=== PATIENT | male | born 1995 | race Caucasian/White ===

== ENCOUNTER 2024-07-10 10:32 | Emergency (ER) | payer SELFPAY ==
[2024-07-10 10:44] VITALS: BP 144/87; PULSE 72; RESP 20; TEMP 36.8; O2SAT 100
--- NOTE | 2024-07-10 10:57 | ED.NAVMDI ---
HPI - Nausea/Vomiting/Diarrhea General Chief complaint: Nausea/Vomiting/Diarrhea Stated complaint: Nausea/Diarrhea/Vomiting Time Seen by Provider: 07/10/24 10:57 Source: patient and RN notes reviewed Mode of arrival: ambulatory Limitations: no limitations History of Present Illness HPI Narrative: 28 old male presented for complaint nausea vomiting, diarrhea. Onset yesterday. Last emesis was this morning at 8:00 a.m.. Stopped eating today and reports feeling better but still has abdominal cramping. He denies associated abdominal pain, hematochezia, melena, or fever. Unsure of sick contacts. Related Data Home Medications ?Medication ?Instructions ?Recorded ?Confirmed ?Last Taken ?Type No Home Medications 07/10/24 07/10/24 Unknown History Allergies Allergy/AdvReac Type Severity Reaction Status Date / Time No Known Allergies Allergy Verified 07/10/24 10:47 Review of Systems Review of Systems: CONSTITUTIONAL: Denies body aches, fever, chills ENT: Denies rhinorrhea, congestion CARDIOVASCULAR: Denies chest pain, palpitations, or edema. RESPIRATORY: Denies cough or dyspnea. GASTROINTESTINAL: Endorses nausea, vomiting, diarrhea. Denies abdominal pain, hematochezia, melena, hematemesis GENITOURINARY: Denies dysuria, hematuria, or CVA tenderness. SKIN: Denies rash NEUROLOGIC: Denies headache All systems reviewed & are unremarkable except as noted in HPI and below PMFSH Comments At time of signature, I have reviewed and agree with nursing past medical, surgical, social and family history unless otherwise noted. Please see nursing chart for further information. There is no relevant family history pertinent to the presenting complaint Exam Narrative: GENERAL: Well-appearing, and in no acute distress. ENT: Mucous membranes pink and moist. CHEST: No respiratory distress. Clear to auscultation. HEART: Regular rate and rhythm. No murmur appreciated. Normal peripheral pulses. ABDOMEN: abd soft, nondistended, normal active bowel sounds. Nontender abdomen; No guarding, rebound tenderness, asymmetry SKIN: Warm, dry, no rash. Capillary refill normal. Normal skin turgor. NEURO: No focal deficits. Alert and oriented x3. PSYCH: Normal affect. Course Course Emergency Course: Patient is aware of diagnosis, understands and agrees to treatment plan. Anticipatory guidance given. Patient agrees to follow-up as directed and is aware of reasons to seek care at the emergency department. Portions of this record may have been created with voice recognition software Level of Care: Express Care Visit Vital Signs Vital signs: Vital Signs Temperature 98.3 F 07/10/24 10:44 Pulse Rate 72 07/10/24 10:44 Respiratory Rate 20 07/10/24 10:44 Blood Pressure 144/87 H 07/10/24 10:44 Pulse Oximetry 100 07/10/24 10:44 Oxygen Delivery Room Air 07/10/24 10:44 Temperature 98.3 F 07/10/24 10:44 Pulse Rate 72 07/10/24 10:44 Respiratory Rate 20 07/10/24 10:44 Blood Pressure 144/87 H 07/10/24 10:44 Pulse Oximetry 100 07/10/24 10:44 Oxygen Delivery Room Air 07/10/24 10:44 MDM - Nausea/Vomiting/Diarrhea MDM Narrative Medical decision making narrative: Discussed physical exam findings. Advised supportive measures and signs/symptoms to go to the ER. Pt is appropriate for outpt treatment and f/u. Differential Diagnosis Differential diagnosis: Likely traveler's diarrhea, food poisoning, gastroenteritis and dehydration Discharge Plan Discharge Clinical Impression: Nausea vomiting and diarrhea Patient Disposition: Home, Self-Care Condition: Stable Instructions: Antibiotic Form, Gastroenteritis (ED) Additional Instructions: Stay hydrated. Take small sips of fluid containing electrolytes frequently. slowly advanced to Clear liquids (broth, jello, tea, sprite, pedialyte) then slowly advance to [place] foods (bananas, rice, applesauce, toast, crackers) Avoid fatty, greasy, fried or spicy foods. Limit dairy until symptoms are improved. [id number] Imodium according to package directions for severe diarrhea Recommend probiotic such as align or lactobacillus to help with symptoms. You should go to the hospital if you experience persistent nausea and vomiting that does not resolve and does not allow you to tolerate any food or fluids, fevers, increasing abdominal pain, persistent diarrhea, or for any other concerns. Follow up with primary care provider in 3 days. Patient Language: Japanese Prescriptions: No Action No Home Medications Follow-up/Referrals: PHYSICIAN NOT ON STAFF,NONSTAFF [Primary Care Provider] - Stand Alone Forms: Work/School Release IP Time of Disposition: 11:02
--- OUTSIDE RECORDS SUMMARY | 2024-07-18 00:17 | XMS_ITS | Encounter Summary ---
Author Organization [facility] Healthcare Address [address] [place] [address] Care Team Providers Care Gas Flow Regulator Name Role Phone Rosina Lucero MD Primary Care Provider [phone] Encounter Details Date Type Department Care Team (Late st Contact Info) Description 04/13/2013 5:41 PM CDT - 04/13/2013 11:59 PM CDT Hospital Encounter [facility] Rosina Lucero MD [address] [place] [id number] Pain in joint, lower leg Social History Tobacco Use Types Packs/Day Years Used Date Smoking Tobacco: Never Assessed Sex and Gender Information Value Date Recorded Sex Assigned at Not on file 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 RESULT: Four views of the right knee demonstrate no evidence of fracture or dislocation. ??The joint spaces are normally aligned. The soft tissues are normal. IMPRESSION: NORMAL RIGHT KNEE. Interpreting Physician: ??DR ALICE MAZA M.D. ??Read on: ??Apr 13 2013 6:12P Transcribed by: ??mb ?? On: Apr 13 2013 ??7:36P Approved Electronically by: ??LINK Palm, DR JENKINS ??on: ??Apr 14 2013 5:46A Ordering DR: DR ROSINA LUCERO Attending DR: DR ROSINA LUCERO Procedure Note Provider, Pallavi, - 11/17/2016 XR Knee Min 4 Views [id number] Acc#: [id number] DATE OF EXAM: Apr 13 2013 CLINICAL HISTORY: Right knee pain, status post fall. RESULT: Four views of the right knee demonstrate no evidence of fracture ordislocation. The joint spaces are normally aligned. The soft tissues arenormal. IMPRESSION: NORMAL RIGHT KNEE. Interpreting Physician: DR ALICE MAZA M.D. Read on: Apr 13 20136:12P Transcribed by: musa On: Apr 13 2013 7:36P Approved Electronically by: LINK Palm, DR JENKINS on: Apr 14 20135:46A Ordering DR: DR ROSINA LUCERO Attending DR: DR ROSINA LUCERO us Historical Provider IMDeborah XR PROCEDURES Final R esult documented in this encounter Visit Diagnoses Diagnosis Pain in joint, lower leg documented in this encounter Care Teams Gas Flow Regulator Relationship Specialty Start Date End Date Rosina Lucero MD PCP - General 04/01/11 07/07/23 documented as of this encounter
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
--- OUTSIDE RECORDS SUMMARY | 2024-07-18 00:17 | XMS_ITS | Encounter Summary ---
Author Organization [facility] Healthcare Address [address] [place] [address] Care Team Providers Care Farm Machinery Assembler Name Role Phone Rosina Esteban MD Primary Care Provider [phone] Encounter Details Date Type Department Care Team (Late st Contact Info) Description 02/13/2017 12:37 PM CDT - 02/13/2017 3:36 PM CDT Emergency 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 Gender Identity Not on file Sexual Orientation Not on file documented as of this encounter Discharge Disposition Disposition Code Departure Means Destination Discharge to home or self care documented in this encounter Plan of Treatment Not on file documented as of this encounter Procedures Procedure Name Priority Date/Time Associated Diagnosis Comments CREATINE KINASE (CK), TOTAL STAT 02/13/2017 2:24 PM CDT URINALYSIS AND REFLEX TO MICROSCOPIC AND CULTURE STAT 02/13/2017 2:00 PM CDT EGFR STAT 02/13/2017 1:15 PM CDT DIFFERENTIAL AUTO STAT 02/13/2017 1:1 5 PM CDT CBC WITH AUTO DIFFERENTIAL STAT 02/13 1:15 PM CDT LIPASE STAT 02/13/2017 1:15 PM CDT AMYLASE STAT 02/13/2017 1:15 PM CDT COMPREHENSIVE METABOLIC PANEL STAT 02/13/2017 1:15 PM CDT ELECTROCARDIOGRAPHY (ECG) 02/13/2017 DISCHARGE LABORATORY CUMULATIVE REPORT 02/13/2017 12:00 AM CDT documented in this encounter Results * Creatine kinase (CK), total (02/13/2017 2:24 PM CDT) CK 80 30 - 200 Units/L [facility]) Blood specimen (specimen) 02/13/2017 2:24 PM CDT 02/13/2017 2:30 PM CDT us Amy Parra HOST/HOSTESS HEAD LAB BLOOD ORDERABLES Final Re sult [facility] ([place]) 1 [facility] Department [place] [address] * Urinalysis reflex to microscopic and culture (02/13/2017 2:00 PM CDT) Color, ur Yellow Yellow [facility] ([place]) Clarity, ur Clear Clear [facility] ([place]) Specific gravity, ur 1.019 1.003 - 1.030 [facility] ([place]) Comment:Normal Ranges: 1.003 -1.030 pH, ur 7.5 4.5 - 8.0 [facility] ([place]) Comment:Normal ranges: 4.5-8 .0 Protein, ur ql Negative Negative mg/dL [facility] ([place]) Glucose, ur ql Negative Negative mg/dL [facility] ([place]) Ketones, ur Negative Negative [facility] ([place]) Bilirubin, ur Negative Negative [facility]) Blood, ur Negative Negative [facility]) Urobilinogen, ur 0.2 0.2 - 1.0 EhrUnit/dL [facility] ([place]) Comment:Normal Ranges: 0.2-1 .0 EU/dL Nitrites, ur Negative Negative [facility] ([place]) Leukocyte esterase, ur Negative Negative [facility] ([place]) Urine 02/13/2017 2:00 PM CDT 02/13/2017 2:04 PM CDT us Amy Parra NP LAB MICROBIOLOGY - GENERAL OR DERABLES Final Result [facility] ([place]) 1 [facility] Department [place] [address] * eGFR (02/13/2017 1:15 PM CDT) eGFR >60 mL/min/1.7 3 m2 [facility] ([place]) Comment: Interpretive Data Reference Interval Normal ?>/= 90 mL/min/1.73m2 Mildly decreased* ? 60 - 89 mL/min/1.73m2 Mildly to moderately decreased ?45 - 59 mL/min/1.73m2 Moderately to severely decreased ??30 - 44 mL/min/1.73m2 Severely decreased ?15 - 29 mL/min/1.73m2 Kidney Failure ?< 15 ??mL/min/1.73m2 *Relative to young adult level If -[place] multiply value by 1.16. Estimated glomerular filtration rate is determined by the CKD-EPI equation recommended by the National Kidney Foundation (KDIGO 2012 Clinical Practice Guideline for the Evaluation and Management of Chronic Kidney Disease. Kidney Intnl Suppl Jul 2012;3:1). The CKD-EPI equation should not be used for patients with unstable renal function and has not been validated in children and those over 70. Current interpretive data was last reviewed 2016. Blood specimen (specimen) 02/13/2017 1:15 PM CDT 02/13/2017 1:17 PM CDT us Amy Parra HOST/HOSTESS HEAD LAB BLOOD ORDERABLES Final Re sult [facility] ([place]) 1 [facility] Department [place] [address] * Comprehensive metabolic panel (02/13/2017 1:15 PM CDT) Sodium 140 135 - 145 mmol/L [facility] ([place]) Potassium 4.0 3.5 - 5.1 mmol/L [facility]) Chloride 102 97 - 110 mmol/L [facility]) CO2 26 22 - 32 mmol/L [facility] ([place]) Anion gap 12 8 - 16 mmol/L [facility] ([place]) Glucose 99 70 - 199 mg/dL [facility] ([place]) Comment: Interpretive Data Note:The glucose is assumed non fasting Fastin-99 mg/dL Random: ??70-199 mg/dL Either a fasting glucose > 126 mg/dL or a random glucose > 200 mg/dL plus symptoms is diagnostic of diabetes when confirmed on another day. Fasting values > 100 mg/dL but < 125 mg/dL are diagnostic of impaired fasting glucose. Current interpretive data was last revised on 2014. BUN 11.6 8.0 - 25.0 mg/dL [facility]) Creatinine 0.75 0.70 - 1.30 mg/dL [facility] ([place]) BUN/creat ratio 15 10 - 20 [facility] ([place]) Calcium 9.3 8.6 - 10.2 mg/dL [facility] ([place]) Protein, sr 7.4 6.0 - 8.4 g/dL [facility] ([place]) Albumin 4.5 3.6 - 5.0 g/dL [facility] ([place]) Alk phos 96 40 - 130 Units/L [facility] ([place]) ALT 45 5 - 50 Units/L [facility]) AST 27 10 - 45 Units/L [facility] ([place]) Bilirubin, total 0.9 <=1.2 mg/dL [facility] ([place]) Blood specimen (specimen) 02/13/2017 1:15 PM CDT 02/13/2017 1:17 PM CDT us Amy Parra HOST/HOSTESS HEAD LAB BLOOD ORDERABLES Final Re sult Performing Organization Address City/[facility]/ZIP Co de Phone Number [facility] ([place]) 1 [facility] [place] [address] * Lipase (02/13/2017 1:15 PM CDT) Lipase 19 10 - 70 Units/L [facility] ([place]) Blood specimen (specimen) 02/13/2017 1:15 PM CDT 02/13/2017 1:17 PM CDT us Amy Parra HOST/HOSTESS HEAD LAB BLOOD ORDERABLES Final Re sult Performing Organization Address [facility]/ZIP Co de Phone Number [facility] ([place]) 1 [facility] [place] [employer] [address] * Amylase (02/13/2017 1:15 PM CDT) Amylase 46 30 - 100 Units/L [facility] ([place]) Blood specimen (specimen) 02/13/2017 1:15 PM CDT 02/13/2017 1:17 PM CDT us Amy Parra HOST/HOSTESS HEAD LAB BLOOD ORDERABLES Final Re sult Performing Organization Address City/[facility]/ZIP Co de Phone Number [facility] ([place]) 1 [facility] [place] [address] * CBC with auto differential (02/13/2017 1:15 PM CDT) WBC 7.31 3.80 - 9.80 K/cumm [facility] ([place]) RBC 4.69 4.50 - 5.70 M/cumm [facility] ([place]) Hgb 15.2 13.8 - 17.2 g/dL [facility] ([place]) Hct 42.7 40.7 - 50.3 % [facility]) MCV 91.0 80.0 - 100.0 fL [facility] ([place]) MCH 32.4 26.7 - 33.7 pg [facility] ([place]) MCHC 35.6 32.7 - 36.0 g/dL [facility] ([place]) RDW CV 11.9 11.5 - 14.6 % [facility] ([place]) Plt 242 140 - 440 K/cumm [facility] ([place]) MPV 11.6 8.0 - 12.0 fL [facility]) NRBC 0.0 0.0 - 0.0 % [facility] ([place]) NRBC abs 0.00 0.00 - 0.00 K/cumm [facility] ([place]) Blood specimen (specimen) 02/13/2017 1:15 PM CDT 02/13/2017 1:17 PM CDT us Amy Parra HOST/HOSTESS HEAD LAB BLOOD ORDERABLES [facility] 1 [facility] Department of Laboratories [place], [place] [id number] * Differential, auto (02/13/2017 1:15 PM CDT) Neutrophil pct 64.0 44.0 - 80.0 % [facility] ([place]) Imm gran pct 0.3 0.0 - 1.0 % [facility] ([place]) Lymphocyte pct 27.5 13.0 - 44.0 % [facility]) Monocyte pct 7.1 2.0 - 11.0 % [facility]) Eosinophil pct 0.7 0.0 - 6.0 % [facility]) Basophil pct 0.4 0.0 - 3.0 % [facility]) Neutrophil abs 4.68 1.60 - 7.00 K/cumm [facility] ([place]) Imm gran abs 0.02 0.00 - 0.20 K/cumm [facility] ([place]) Lymphocyte abs 2.01 0.50 - 4.30 K/cumm [facility] ([place]) Monocyte abs 0.52 0.10 - 1.00 K/cumm [facility] ([place]) Eosinophil abs 0.05 0.00 - 0.60 K/cumm [facility] ([place]) Basophil abs 0.03 0.00 - 0.30 K/cumm [facility] ([place]) Blood specimen (specimen) 02/13/2017 1:15 PM CDT 02/13/2017 1:17 PM CDT us Amy Parra HOST/HOSTESS HEAD LAB BLOOD ORDERABLES Final Re sult [facility] ([place]) 1 [facility] Department [place] [address] * DISCHARGE LABORATORY CUMULATIVE REPORT (02/13/2017 12:00 AM CDT) Narrative 02/13/2017 12:00 AM CDT Ordered by an unspecified provider. Historical Provider LAB BLOOD ORDERABLES Alice l Result * ELECTROCARDIOGRAPHY (ECG) (02/13/2017) Provider Scanning ECG ORDERABLES Final Result documented in this encounter Visit Diagnoses Not on filedocumented in this encounter Care Teams Farm Machinery Assembler Relationship Specialty Start Date End Date Rosina Esteban MD PCP - General 04/01/11 07/07/23 documented as of this encounter
--- OUTSIDE RECORDS SUMMARY | 2024-07-18 00:17 | XMS_ITS | Referral Summary ---
Author Organization [facility] Address [address] [place] [address] Care Team Providers Care Top Lift And Automatic Window Repairer Name Role Phone Tamar Macias NP Primary Care Provider [phone] Allergies No known active allergies Medications naproxen (NAPROSYN) 500 mg tablet Take 1 tablet (500 mg total) by mouth 2 (two) times a day as needed for pain (pain) 60 tablet 07/09/2023 Active Active Problems Problem Noted Date Diagnosed Date Inguinal pain of both sides 07/09/2023 Assessment & Plan (07/09/2023 2:31 PM ROUGH PATCHER): Persistent Inguinal strain, initial encounter 07/09/2023 Assessment & Plan (07/09/2023 2:30 PM ROUGH PATCHER): Pain started after doing a lot of straining with heavy lifting, pushing and pulling at work on 07/05/23 Reported it the same day Was sent to [facility] for evaluation on 06/1323, dx with epididymitis and released to return to work light duty (see copy in chart) Inguinal hernia of right jamal e without obstruction or gangrene 07/09/2023 Assessment & Plan (07/09/2023 2:32 PM ROUGH PATCHER): Palpable R inguinal hernia that is reducible with moderate amount of pain reported Immunizations Name Administration Dates Next Due DTP / HiB 03/08/1997,01/08/1997,1996 Hep B, Adolescent or Pediatric 06/08/1997,1996,1996 Influenza, Split 05/05/2010 Influenza, Unspecified 07/09/2023(Deferr ed: Patient Refused),07/06/2022(Deferred: Patient Refused) OPV 01/08/1997,1996 Social History Tobacco Use Types Packs/Day Years Used Date Smoking Tobacco: Never Smokeless Tobacco: Never Comments:Vapes AUDIT-C Answer Date Recorded Q1: How often do you have a drink containing alcohol? Never 07/09/2023 Q2: How many drinks containi ng alcohol do you have on a typical day when you are drinking? Patient does not drink Q3: How often do you have si x or more drinks on one occasion? Never 07/09/2023 PHQ-2 Answer Date Recorded PHQ-2 Total Score (If total score is 3 or more points, staff should administer the PHQ-9) 0 07/09/2023 Personal Safety Answer Date Recorded Getting School Help Needed Not on file 07/07 Sex and Gender Information Value Date Recorded Sex Assigned at Not on file Legal Sex Male 9:13 AM ROUGH PATCHER Gender Identity Not on file Sexual Orientation Not on file Last Filed Vital Signs Vital Sign Reading Time Taken Comments Blood Pressure 118/80 07/09/2023 10:15 AM ROUGH PATCHER Pulse 79 07/09/2023 10:15 AM ROUGH PATCHER Temperature 36.4 ??C (97.6 ??F) 07/09/2023 10:[address] Respiratory Rate 18 06/19/2019 10:53 PM ROUGH PATCHER Oxygen Saturation 99% 07/09/2023 10:15 AM ROUGH PATCHER Inhaled Oxygen Concentration - - Weight 97 kg (213 lb 14.4 oz) 07/09/2023 10:15 A M ROUGH PATCHER Height 172.7 cm (5' 8 ) 07/09/2023 10:15 AM ROUGH PATCHER Body Mass Index 32.52 07/09/2023 10:15 AM ROUGH PATCHER Plan of Treatment Not on file Care Teams Top Lift And Automatic Window Repairer Relationship Specialty Start Date End Date Tamar Macias NP PCP - General Tour Counselor 07/08/23
--- OUTSIDE RECORDS SUMMARY | 2024-07-18 00:17 | XMS_ITS | Encounter Summary ---
Author Organization [facility] Healthcare Address [address] [place] [address] Care Team Providers Care Business Architect Name Role Phone Tamar Macias NP Primary Care Provider Reason for Visit * Reason Onset Date Comments Medical Records Request 08/09/2023 Encounter Details Date Type Department Care Team ([facility] Contact Info) Description 08/09/2023 Telephone [facility] Medical [facility] Primary Care at [address] [place] [address] Tamar Macias NP [address] [place] [address] Medical Records Request Social History Tobacco Use Types Packs/Day Years [...] on file 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 Understood. Does message need to be routed? No ON FEEDER * Telephone Encounter - Renae Campo MA - 08/09/2023 11:58 AM COTTON FEEDER Left envolope at front desk auxiliary for the patient, with requested documents ON FEEDER * Telephone Encounter - Tania Bauer - 08/09/2023 11:32 AM CST Medical Records Request Request Type: Records Request Practice Will Complete What records are being requested:Office visit notes from 07/09/23 Who will the records be sent to (if being sent to another doctor, list the doctor's name and specialty)? Patient picking up Date Needed: JOEL Delivery Method: upholstery parts sorter at practice Additional Comments: patient needs this JOEL as work dr did not find hernia and they are making himwork. ESTELA Macias did find something the patient states. Does message need to be routed? Yes-Action Needed ON FEEDER documented in this encounter Plan of Treatment Not on file documented as of this encounter Visit Diagnoses Not on filedocumented in this encounter Care Teams Business Architect Relationship Specialty Start Date End Date Tamar Macias NP PCP - General Shirt Creaser 07/08/23 documented as of this encounter
--- OUTSIDE RECORDS SUMMARY | 2024-07-18 00:17 | XMS_ITS | Encounter Summary ---
Author Organization [facility] Healthcare Address [address] [place] [address] Care Team Providers Care Stockfeed Miller Name Role Phone Tamar Macias NP Primary Care Provider [phone] Reason for Visit * Reason Onset Date Comments Recommendation Request 08/24/2023 Encounter Details Date Type Department Care Team ([facility] Contact Info) Description 08/24/2023 Telephone [facility] Medical Group Primary Care at [address] [place] [phone] Tamar Macias NP [address] [place] [address] [address] [place] [address] Recommendation Request Social History Tobacco Use Types Packs/Day [...] on file 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 S AND MARKETING MANAGER * Telephone Encounter - Tania Bauer - 08/24/2023 12:05 PM CST Recommendation Request Note: This request is for a specialty recommendation, not an insurance referral. Specialty: Urology and surgeon Why does the patient want to go to this specialist? He has a hernia and he is scheduled for surgeryon 08/30/23. Marking hp. He said that the the hernia is over a blood vessel that could be damaged andtake away a testicle. Additional Comments/Concerns: work comp is mixed up in this, but he is concerned he is not being treated correctly. He is willing to pay out of pocket to be treated right. He has a lot of questions as well. Does message need to be routed? Yes-Action Needed S AND MARKETING MANAGER documented in this encounter Plan of Treatment Not on file documented as of this encounter Visit Diagnoses Not on filedocumented in this encounter Care Teams Stockfeed Miller Relationship Specialty Start Date End Date Tamar Macias NP PCP - General Nut Sheller 07/08/23 documented as of this encounter
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
--- OUTSIDE RECORDS SUMMARY | 2024-07-18 00:17 | XMS_ITS | Encounter Summary ---
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
--- OUTSIDE RECORDS SUMMARY | 2024-07-18 00:17 | XMS_ITS | Encounter Summary ---
Author Organization [facility] Healthcare Address [address] [place] [address] Care Team Providers Care Soldering Inspector Name Role Phone Unavailable Primary Care Provider Unavailabl e Encounter Details Date Type Department Care Team (Late st Contact Info) Description 01/20/2010 5:36 PM CDT - 01/20/2010 11:59 PM CDT Hospital Encounter [facility] Rosina Metz MD [address] [place] [id number] Injury, other and unspecified, finger; Closed fracture of middle or proximal phalanx or phalanges of hand; Striking against or struck accidentally by objects or persons in sports without subsequent fall; Place of occurrence, place for recreation and sport; Activities involving baseball; Other external cause of injury or poisoning Social History Tobacco Use Types Packs/Day Years Used Date Smoking Tobacco: Never Assessed Sex and Gender Information Value Date Recorded Sex Assigned at Not on file 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
--- OUTSIDE RECORDS SUMMARY | 2024-07-18 00:17 | XMS_ITS | Encounter Summary ---
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
--- OUTSIDE RECORDS SUMMARY | 2024-07-18 00:17 | XMS_ITS | Encounter Summary ---
Author Organization [facility] Healthcare Address [address] [place] [address] Care Team Providers Care Steam Generating Powerplant Mechanic Name Role Phone Rosina Esteban MD Primary Care Provider [phone] Reason for Visit * Reason Comments Insect Bite Encounter Details Date Type Department Care Team (Late st Contact Info) Description 06/19/2019 10:44 PM ANODE WORKER - 06/19/2019 11:13 PM ANODE WORKER Emergency [facility] Emergency Department [address] [place] [id number] Cellulitis of right lower extremity (Primary Dx) Discharge Disposition: Discharge to home or self care Social History Tobacco Use Types Packs/Day Years Used Date Smoking Tobacco: Never Smokeless Tobacco: Never Comments:Vapes Sex and Gender Information Value Date Recorded Sex Assigned at Not on file 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 Gender Identity Not on file Sexual Orientation Not on file documented as of this encounter Last Filed Vital Signs Vital Sign Reading Time Taken Comments Blood Pressure 140/79 06/19/2019 10:53 PM ANODE WORKER Pulse 81 06/19/2019 10:53 PM ANODE WORKER Temperature 36.3 ??C (97.3 ??F) 06/19/2019 10:[address] Respiratory Rate 18 06/19/2019 10:53 PM ANODE WORKER Oxygen Saturation 99% 06/19/2019 10:53 PM ANODE WORKER Inhaled Oxygen Concentration - - Weight 90.7 kg (200 lb) 06/19/2019 10:53 PM ANODE WORKER Height 167.6 cm (5' 6 ) 06/19/2019 10:53 PM ANODE WORKER Body Mass Index 32.28 06/19/2019 10:53 PM ANODE WORKER documented in this encounter Discharge Diagnoses Diagnosis Cellulitis of right lower limb - CELLULITIS OF RIGHT LOWER LIMB documented in this encounter Discharge Instructions * Attachments The following attachments cannot be sent through Care Everywhere. * Cellulitis (AfterCare(R) Instructions(ER/ED)) (Citizen Of [place]) documented in this encounter Medications at Time of Discharge cephalexin (KEFLEX) 500 mg capsule Take 1 capsule (500 mg total) by mouth 4 (four) times a day for 10 days 40 capsule 06/19/2019 06/29/2019 documented as of this encounter Ordered Prescriptions Prescription Sig Dispense Quantity Refills Last Filled Start Date End Date cephalexin (KEFLEX) 500 mg capsule Take 1 capsule (500 mg total) by mouth 4 (four) times a day for 10 days 40 capsule 06/19/2019 9 documented in this encounter Discharge Disposition Disposition Code Departure Means Destination Discharge to home or self care documented in this encounter ED Notes * Mariza Edwards, CSW - 06/19/2019 11:02 PM CST HPI Chief Complaint Patient presents with ??? Insect Bite 23-year-old male with no significant medical history, presents to ED with visitor at bedside. Patient states he 1st noticed his abscess to his right medial calf this morning. Small amount drainage noted from area. Patient denies any numbness, tingling, fevers, or chills. Patient History There are no active problems to display for this patient. History reviewed. No pertinent past medical history. History reviewed. No pertinent surgical history. History reviewed. No pertinent family history. Social History Tobacco Use ??? Smoking status: Never Smoker ??? Smokeless tobacco: Never Used ??? Tobacco comment: Vapes Substance Use Topics ??? Alcohol use: Not on file ??? Drug use: Not on file Social History Patient does not qualify to have social determinant information on file (likely too young). Social History Narrative ??? Not on file Review of Systems Review of Systems Constitutional: Negative. Negative for chills and fever. Respiratory: Negative. Cardiovascular: Negative. Musculoskeletal: Positive for myalgias. Skin: Positive for wound. Neurological: Negative. Negative for numbness. All other systems reviewed and are negative. Physical Exam ED Triage Vitals [06/19/19 2253] Temp Pulse Resp BP SpO2 36.3 ??C (97.3 ??F) 81 18 140/79 99 % Temp src Heart Rate Source Patient Position BP Location FiO2 (%) Oral -- -- -- -- Physical Exam Vitals signs and nursing note reviewed. Exam conducted with a media production support manager present. Constitutional: General: He is not in acute distress. Appearance: Normal appearance. He is not ill-appearing, toxic-appearing or diaphoretic. HENT: Head: Normocephalic and atraumatic. Nose: Nose normal. Eyes: Extraocular Movements: Extraocular movements intact. Neck: Musculoskeletal: Normal range of motion. Cardiovascular: Rate and Rhythm: Normal rate. Pulses: Normal pulses. Pulmonary: Effort: Pulmonary effort is normal. No respiratory distress. Musculoskeletal: Normal range of motion. Skin: General: Skin is warm and dry. Capillary Refill: Capillary refill takes less than 2 seconds. Comments: 2 cm in diameter abscess with minimal bloody drainage noted to right medial calf. Minimalerythema surrounding site. Neurological: General: No focal deficit present. Mental Status: He is alert and oriented to person, place, and time. Psychiatric: Mood and Affect: Mood normal. Behavior: Behavior normal. Thought Content: Thought content normal. Judgment: Judgment normal. MDM MDM Number of Diagnoses or Management Options Cellulitis of right lower extremity: minor Risk of Complications, Morbidity, and/or Mortality Presenting problems: minimal Diagnostic procedures: minimal Management options: low Patient Progress Patient progress: stable Cellulitis of right lower extremity Mariza Edwards NP 06/19/19 2318 Cosigned by Yefri Cook MD at 06/20/2019 12:18 AM ANODE WORKER E WORKER E WORKER * Nedra Parra RN - 06/19/2019 10:52 PM CST Pt presents with complaints of a possible insect bite to his right lower leg. Pt states that he noticed the area hurting about an hour ACID BATH MIXER. Pt states that the area is very tender. It appears that thecenter of the site has been scratched open. E WORKER documented in this encounter Plan of Treatment Not on file documented as of this encounter Visit Diagnoses Diagnosis Cellulitis of right lower extremity- Primary documented in this encounter Care Teams Steam Generating Powerplant Mechanic Relationship Specialty Start Date End Date Rosina Esteban MD PCP - General 04/01/11 07/07/23 documented as of this encounter
--- OUTSIDE RECORDS SUMMARY | 2024-07-18 00:17 | XMS_ITS | Data Portability ---
Author Organization [facility] [facility], Main Office Address [address] [place] [phone] Assessment Encounter Date Assessment Date Assessment LastModified by Organization Details LastModified Time 08/19/2023 08/19/2023 right inguinal hernia, symptomatic. Options discussed with patient. We will proceed with repair in the operating room using mesh. Risks and benefits were discussed main risks include bleeding, infection chronic pain and testicular atrophy Not available 08/19/2023 13:11:32 10/21/2023 10/21/2023 right inguinal hernia, reducible. Symptomatic. 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 We will schedule for right inguinal hernia repair with mesh. Risks and benefits discussed. Risks include bleeding, infection chronic pain and testicular atrophy Not available 10/21/2023 11:50:42 11/23/2023 11/23/2023 status post repair of right inguinal hernia with mesh. Doing well overall. Follow-up here p.r.n. Not available 11/23/2023 12:27:02 Plan of Treatment Reminders Order Date Submit Date Provider Last Modified By Organization Details Last Modified Time Details Appointments None record ed. Lab None record ed. Referral None record ed. Procedures None record ed. Surgeries None record ed. Imaging None record ed. Medication Orders None record ed. Patient TargetsNo targets recorded. Patient InstructionsNo instructions recorded. Reason for Referral None Reported. Problems Name Problem SNOMED Code Status Onset Date Resolution Date Notes Provider Name and Address Organization Details Recorded Time Right inguinal hernia [id number] Active Adriana jain MD [address] [facility], [facility] [address], [place], [address] , [employer] 01/25/202 4 15:03:58 Problem Notes None recorded. Procedures Surgical History Date Name Laterality Status Provider Name and Address Organization Details Recorded Time 4 Hernia Surgery completed Juliette Terry MA [place] [facility] [employer] 10/28/2023 12:30:33 Imaging Results None recorded. Procedure Notes None recorded. Medical Equipment None Reported. Allergies No known drug allergies Medications Name Sig Start Date Stop Date Status Note LastModified by Organization Details LastModified Time oxycodone -acetamin ophen 5 mg-325 mg tablet TAKE 1 TABLET BY MOUTH EVERY 4 HOURS NEEDED FOR PAIN active Not Available Not Available No t Available Vitals Date Recorded Body height Body mass index (BMI) Body weight Body temperature Heart rate Respiratory rate Oxygen saturation Oxygen saturation in Arterial blood by Pulse oximetry Systolic blood pressure Diastolic blood pressure Provider Name and Address Organization Details Last Updated DateTime 4 167.64 cm 32.3 kg/m2 91011.4 7 g 97.9 [degF] 82 /min 14 /min 98 % 98 % 140 mm[Hg] 80 mm[Hg] [place] [facility] [employer] [facility] 4 12:16:35 Date Recorded Body height Body mass index (BMI) Body weight Body temperature Heart rate Respiratory rate Oxygen saturation Oxygen saturation in Arterial blood by Pulse oximetry Systolic blood pressure Diastolic blood pressure Provider Name and Address Organization Details Last Updated DateTime 4 167.64 cm 32.3 kg/m2 49146.4 7 g 97.9 [degF] 82 /min 14 /min 98 % 98 % 140 mm[Hg] 80 mm[Hg] [place] [facility] [employer] [facility] 4 11:11:50 Date Recorded Body height Body mass index (BMI) Body weight Body temperature Heart rate Respiratory rate Oxygen saturation Oxygen saturation in Arterial blood by Pulse oximetry Systolic blood pressure Diastolic blood pressure Provider Name and Address Organization Details Last Updated DateTime 4 167.64 cm 32.3 kg/m2 47915.4 7 g 97.9 [degF] 82 /min 14 /min 98 % 98 % 140 mm[Hg] 80 mm[Hg] [facility] [employer] [facility] [employer] [facility] 4 12:11:47 Social History None recorded. Functional Status None recorded. Mental Status None recorded. Family History Relationship Description Onset Age of this Age Resolved Age Notes LastModified by Organization Details LastModified Time Father No current problems or disability [email or web address] Not available 12:17:00 Mother No current problems or disability [email or web address] Not available 12:17:00 Medical History Condition Response BLINDNESS N KIDNEY STONES N BLADDER PROBLEMS N MRSA N OTHER # 1 N LUNG DISEASE/DISORDER N HISTORY OF DRUG ABUSE N RADIATION / CHEMOTHERAPY N COPD N Other # 2 N SHINGLES N BOWEL PROBLEMS N DEPRESSION (INCLUDING POST ) N FAILED BACK SYNDROME N STROKE/TIA N THYROID DISEASE N BENIGN PROSTATIC HYPERPLASIA N TB SKIN TEST N HYPOTENSION N PARAPELGIA N OBESITY N GERD/NAUSEA N ANEURYSM N URINARY/BLADDER/KIDNEY PROBLEMS N CORONARY ARTERY DISEASE (CAD) N Do you have Advance directive? N USE OF BLOOD THINNERS N PERIPHERAL ARTERY DISEASE N GASTROINTESTINAL BLEEDING N Do you have a living will? N BLOOD CLOTS N ASTHMA N Abdominal Pain N ARTERIAL INSUFFICIENCY N NEUROPATHY N AIDS/HIV N LIVER DISEASE N HYPERTENSION N TOURETTE'S N ANXIETY DISORDER N BLOOD TRANSFUSION N ANEMIA/BLOOD DISORDER N TUBERCULOSIS N GLAUCOMA N DIVERTICULITIS N SLEEP APNEA N ALLERGIES/HAYFEVER N BACK INJECTIONS N ESRD N INSOMNIA N HIGH CHOLESTEROL / HYPERLIPIDEMIA N PVD N EDEMA N CAROTID BLOCKAGE N BACK / NECK PROBLEMS N HAVE YOU BEEN HOSPITALIZED OR SEEN IN [facility] ER IN THE PAST YEAR ? N MIGRAINES N POLYCYSTIC OVARIES N HISTORY WITH COMPLICATIONS WITH ANESTHES IA ? N FIBROMYALGIA N OSTEOPOROSIS N ARTHRITIS N Do you have a healthcare POA? N NO SIGNIFICANT PAST MEDICAL HISTORY N APPENDICITIS N DIABETES, TYPE N VON WILLIBRAND'S DISEASE N HEARTBURN / REFLUX N HEPATITIS / LIVER DISEASE N POST LAMINECTOMY SYNDROME N PULMONARY DISEASE N GOUT N ALZHEIMER'S DISEASE N DEMENTIA N HERPES N HEADACHES/MIGRAINES N SEIZURES/EPILEPSY N VASCULAR DISEASE N PACEMAKER N Blood Disorder N DIZZINESS N HEART DISEASE/HEART PROBLEMS N KIDNEY DISEASE N MENTAL DISORDER/ILLNESS N NEUROPSYCHOLOGICAL N CANCER: SPECIFY N CARDIAC ARRHYTHMIA N ANESTHESIA COMPLICATIONS N Gall Stones N AUTOIMMUNE DISEASE N DEAF/HEARING IMPAIRED N Past Encounters Encounter ID Performer Location Encounter Start Date Encounter Closed Date Diagnosis/Indication Diagnosis SNOMED-CT Code Diagnosis ICD10 Code [id number] Hao jain MD [facility] General Surgery [address] [facility], [address] [place] [address] 08/19/2023 11:53:13 08/19/2023 17:12:28 Right inguinal hernia 512538227 K40.90 [id number] Hao jain MD [facility] General Surgery [address] [address] 10/21/2023 11:08:53 10/21/2023 11:59:35 Right inguinal hernia [id number] K40.90 [id number] Hao jain MD [facility] General Surgery [address] [address] 11/23/2023 12:10:03 11/25/2023 12:02:05 Health Concerns Section Related Observation LastModified by Organization Detai ls LastModified Time None Recorded Concern Status LastModified by Organization Details LastModified Time None Recorded Advance Directives Directive None Recorded Payers Encounter Date Sequence Insurance Name Policy Number Policy Cardona Covered Member ID Cardona Member ID Guarantor Name 08/19/2023 1 [employer] 10/21/2023 1 [employer] 11/23/2023 1 [employer] Notes Date Note Type Note Provider Name and Address Organization Details Recorded Time 08/19/2023 text/html patient complain s of painful bulge in right groin. Started approximately 5 weeks ago after lifting a heavy object at work. [place] a burning sensation and found a lump several days later. Currently not working. lump is always there. Denies nausea vomiting or any other constitutional symptoms Hao Rausch MD [address], [place] [address], [place], [address], [employer] 08/19/2023 15:04:04 10/21/2023 text/html patient continue s to have right groin pain and discomfort worse at the end of the day. Has inguinal hernia. Was seen here in the office several weeks ago. He is here to schedule surgery. No new issues Hao Rausch MD [address], [facility] [address], [place], [address], [employer] 10/21/2023 13:30:39 11/23/2023 text/html having some mild right testicular tenderness at times. Otherwise no issues Hao Rausch MD [address] [place] [address], [place], [address], [facility] 11/23/2023 12:27:05
--- OUTSIDE RECORDS SUMMARY | 2024-07-18 00:17 | XMS_ITS | Encounter Summary ---
Author Organization [facility] Healthcare Address [address] [place] [address] Care Team Providers Care Slot Tag Inserter Name Role Phone Tamar Macias NP Primary Care Provider [phone] Reason for Referral * Consultation (Routine) - Pending Review Specialty Diagnoses / Procedures Referred By Contac t Referred To Contact General Surgery Diagnoses Non-recurrent unilateral inguinal hernia [place] [address] [place] [address] Phone: tel: fax: Delaney Cortez MD Phone: tel: fax: Referral ID Status Reason Start Date Expiration Date Visits Requested Visits Authorized [id number] Pending Review Specialty Services Required 09/13/2023 10/12/2024 1 1 Question Answer Please select the performing region: [facility] (All Locations) [167] To provider: DELANEY CORTEZ [[id number]] # of visits: 1 Comments Right inguinal hernia PER AND TURNER Encounter Details Date Type Department Care Team (Late st Contact Info) Description 09/13/2023 Orders Only [facility] Operating Room [address] [place] [id number] [place] [address] [place] [id number] Non-recurrent unilateral inguinal hernia without obstruction or gangrene (Primary Dx) Social History Tobacco Use Types Packs/Day Years [...] on file Legal Sex Male 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 Gender Identity Not on file Sexual Orientation Not on file documented as of this encounter Plan of Treatment Scheduled Referrals Name Type Priority Associated Diagnoses Orde r Schedule Ambulatory referral to General Surgery Outpatient Referral Routine Non-recurrent unilateral inguinal hernia without obstruction or gangrene Expected: 09/27/2023 (Approximate), Expires: 09/13/2024 documented as of this encounter Visit Diagnoses Diagnosis Non-recurrent unilateral inguinal hernia without obstruction or gangrene- Primary documented in this encounter Care Teams Slot Tag Inserter Relationship Specialty Start Date End Date Tamar Macias NP PCP - General Printing Machine Operator 07/08/23 documented as of this encounter
--- OUTSIDE RECORDS SUMMARY | 2024-07-18 00:17 | XMS_ITS | Encounter Summary ---
Author Organization [facility] Healthcare Address [address] [place] [address] Care Team Providers Care Armored Car Messenger Name Role Phone Tamar Macias NP Primary Care Provider [phone] Reason for Referral * Consultation (Routine) - Authorized Specialty Diagnoses / Procedures Referred By Contac t Referred To Contact Urology Diagnoses Inguinal hernia of right side without obstruction or gangrene Inguinal pain of both sides Inguinal strain, initial encounter Tamar Macias NP Phone: tel: fax: Urology of [address] [address] Phone: tel: fax: Referral ID Status Reason Start Date Expiration Date Visits Requested Visits Authorized [id number] Authorized Specialty Services Required 3 08/07/2024 1 1 Question Answer Please select the performing region: External Order [171] To loc/pos [facility] [[id number]] # of visits: 1 AND DIE MAKER APPRENTICE Reason for Visit * Reason Comments New Patient possible hernia Encounter Details Date Type Department Care Team (Late st Contact Info) Description 07/09/2023 10:30 AM TOOL AND DIE MAKER APPRENTICE Office Visit [facility] Primary Care at [address] [address] Tamar Macias NP [address] [place] [address] [address] [place] [address] Inguinal strain, initial encounter (Primary Dx); Inguinal pain of both sides; Inguinal hernia of right side without obstruction or gangrene Social History Tobacco Use Types Packs/Day Years [...] on file Legal Sex Male 9:13 AM TOOL AND DIE MAKER APPRENTICE Gender Identity Not on file Sexual Orientation Not on file documented as of this encounter Last Filed Vital Signs Vital Sign Reading Time Taken Comments Blood Pressure 118/80 07/09/2023 10:15 AM TOOL AND DIE MAKER APPRENTICE Pulse 79 07/09/2023 10:15 AM TOOL AND DIE MAKER APPRENTICE Temperature 36.4 ??C (97.6 ??F) 07/09/2023 10:[address] Respiratory Rate - - Oxygen Saturation 99% 07/09/2023 10:15 AM TOOL AND DIE MAKER APPRENTICE Inhaled Oxygen Concentration - - Weight 97 kg (213 lb 14.4 oz) 07/09/2023 10:15 A M TOOL AND DIE MAKER APPRENTICE Height 172.7 cm (5' 8 ) 07/09/2023 10:15 AM TOOL AND DIE MAKER APPRENTICE Body Mass Index 32.52 07/09/2023 10:15 AM TOOL AND DIE MAKER APPRENTICE documented in this encounter Patient Instructions * Patient Instructions* Tamar Macias NP - 07/09/2023 10:30 AM TOOL AND DIE MAKER APPRENTICE Discussed diagnoses with patient. He can return to work light duty and to remain on light duty until he sees a urologist to evaluate the right inguinal hernia. Hernia may have been present prior to the strain with heavy lifting, pushing and pulling at work with the symptoms exascerbating the condition or may be a result of the strain. Discussed care to try to minimize the discomfort, NSAIDs, hernia belt Referral to urology My medical facilities section director and I are thankful you have trusted us with your care, and hope that you received EXCELLENT care today! Please do not hesitate to call if you have any questions or concerns. You may receive a phone call or text asking about your care today. We would love to hear your input and again, hope your visit was as EXCELLENT as possible, even if you were not feeling your best! -Tamar Macias INSECTICIDE MIXER-BC AND DIE MAKER APPRENTICE AND DIE MAKER APPRENTICE AND DIE MAKER APPRENTICE documented in this encounter Ordered Prescriptions Prescription Sig Dispense Quantity Refills Last Filled Start Date End Date naproxen (NAPROSYN) 500 mg tablet Take 1 tablet (500 mg total) by mouth 2 (two) times a day as needed for pain (pain) 60 tablet 07/09/2023 documented in this encounter Progress Notes * Tamar Macias NP - 07/09/2023 10:30 AM CST Images from the original note were not included. Patient ID: Angelo East is a 27 y.o. male. Assessment/Plan Diagnoses and all orders for this visit: Inguinal strain, initial encounter (Primary) Assessment & Plan: Pain started after doing a lot of straining with heavy lifting, pushing and pulling at work on 07/05/23 Reported it the same day Was sent to [facility] for evaluation on 06/1323, dx with epididymitis and released to return to work light duty (see copy in chart) Orders: - Ambulatory referral to Urology; Future Inguinal pain of both sides Assessment & Plan: Persistent Orders: - Ambulatory referral to Urology; Future Inguinal hernia of right side without obstruction or gangrene Assessment & Plan: Palpable R inguinal hernia that is reducible with moderate amount of pain reported Orders: - Ambulatory referral to Urology; Future Other orders - naproxen (NAPROSYN) 500 mg tablet; Take 1 tablet (500 mg total) by mouth 2 (two) times a day as needed for pain (pain) Follow up if not improving Chief Complaint New Patient and possible hernia Possible hernia Sx x 5 days after doing some heavy lifting, pushing, pulling at work on 07/05/23. Was sent to [facility] on 07/07/23. Had reported injury on 07/05/23. Dx with epididymitis per discharge summary, no treatment Could return to work 07/07/23 He returned to work with restrictions on 07/08/23 (no lifting over 10 lbs, no kneeling or squatting, no bending, twisting or stopping until released by his PCP He is presenting here for primary care. Bilateral groin pain, can feel a lump in his R groin; pain is sharper on the L side Constant, burning, sharp and throbbing pain, rated 6-7 of 10 at present Has been crippling in intensity at times Coughing and laughing makes it hurt worse Increases with any lifting, pushing, pulling; has been avoiding that as much as possible The lump in his R groin is more prominent with standing or tensing his abdominal muscles Nothing seems to lessen the pain, it just varies on it's own Tx with Tylenol 2 pills on Wednesday from [facility], no relief Has discomfort in his belly button that comes and goes, occurs randomly, not associated with anything he can identify Pain is kind of sharp and shocking, duration from 5 to 30 miunutes, rated from 2 to 9 At present he can feel a discomfort rated 6 of 10, states it doesn't really feel like a pain. Has scrotal pain bilaterally, constant, sharp and aching, rated 7 of 10 at present Very unpleasant, does not feel swollen No urinary sx Review of Systems Constitutional: Negative for fatigue and fever. Respiratory: Negative for cough, chest tightness and shortness of breath. Cardiovascular: Negative for chest pain and palpitations. Gastrointestinal: Negative for abdominal pain, constipation and diarrhea. Genitourinary: Positive for testicular pain. Negative for difficulty urinating, dysuria, penile pain, scrotal swelling and urgency. BP 118/80 (BP Location: Right arm, Patient Position: Sitting) Pulse 79 Temp 36.4 ??C (97.6 ??F)(Temporal) Ht 172.7 cm (5' 8 ) Wt 97 kg (213 lb 14.4 oz) SpO2 99% BMI 32.52 kg/m?? Physical Exam Constitutional: Appearance: Normal appearance. HENT: Head: Normocephalic. Right Ear: External ear normal. Left Ear: External ear normal. Cardiovascular: Rate and Rhythm: Normal rate and regular rhythm. Heart sounds: Normal heart sounds. Pulmonary: Effort: Pulmonary effort is normal. Breath sounds: Normal breath sounds. Abdominal: General: Abdomen is flat. Bowel sounds are normal. There is no distension. Palpations: Abdomen is soft. There is no mass. Tenderness: There is no abdominal tenderness. There is no guarding. Hernia: A hernia is present. Hernia is present in the right inguinal area (small, reducible). Thereis no hernia in the left inguinal area. Genitourinary: Penis: Normal and circumcised. No erythema, tenderness or discharge. Testes: Normal. Right: Mass, tenderness, swelling, testicular hydrocele or varicocele not present. Right testis is descended. Left: Mass, tenderness, swelling, testicular hydrocele or varicocele not present. Left testis is descended. Epididymis: Right: Normal. Left: Normal. Lymphadenopathy: Lower Body: No right inguinal adenopathy. No left inguinal adenopathy. Skin: General: Skin is warm and dry. Neurological: General: No focal deficit present. Mental Status: He is alert and oriented to person, place, and time. Psychiatric: Mood and Affect: Mood normal. Behavior: Behavior normal. Side effects, risks, interactions reviewed with patient. Indications for testing discussed. Any further problems to contact us. He was told what to look out for and verbalized understanding. The patient was given the opportunity to have all questions answered today and was in agreement with the plan of care. Tamar Macias NP Cosigned by Bernard Conley MD at 07/12/2023 12:29 PM TOOL AND DIE MAKER APPRENTICE AND DIE MAKER APPRENTICE AND DIE MAKER APPRENTICE documented in this encounter Miscellaneous Notes * Assessment & Plan Note - Tamar Macias NP - 07/09/2023 2:32 PM TOOL AND DIE MAKER APPRENTICE Associated Problem(s): Inguinal hernia of right side without obstruction or gangrene Palpable R inguinal hernia that is reducible with moderate amount of pain reported AND DIE MAKER APPRENTICE * Assessment & Plan Note - Tamar Macias NP - 07/09/2023 2:31 PM TOOL AND DIE MAKER APPRENTICE Associated Problem(s): Inguinal pain of both sides Persistent AND DIE MAKER APPRENTICE * Assessment & Plan Note - Tamar Macias NP - 07/09/2023 2:30 PM TOOL AND DIE MAKER APPRENTICE Associated Problem(s): Inguinal strain, initial encounter Pain started after doing a lot of straining with heavy lifting, pushing and pulling at work on 07/05/23 Reported it the same day Was sent to [facility] for evaluation on 06/1323, dx with epididymitis and released to return to work light duty (see copy in chart) AND DIE MAKER APPRENTICE documented in this encounter Plan of Treatment Scheduled Referrals Name Type Priority Associated Diagnoses Orde r Schedule Ambulatory referral to Urology Outpatient Referral Routine Inguinal hernia of right side without obstruction or gangrene Inguinal pain of both sides Inguinal strain, initial encounter Expected: 07/23/2023 (Approximate), Expires: 07/09/2024 documented as of this encounter Visit Diagnoses Diagnosis Inguinal strain, initial encounter- Primary Inguinal pain of both sides Inguinal hernia of right side without obstruction or gangrene documented in this encounter Care Teams Armored Car Messenger Relationship Specialty Start Date End Date Tamar Macias NP PCP - General Automobile Rental Representative 07/08/23 documented as of this encounter
--- OUTSIDE RECORDS SUMMARY | 2024-07-18 00:17 | XMS_ITS | Clinical Summary ---
Author Organization [facility] Address [address] [place] [address] Care Team Providers Care Hedge Fund Principal Name Role Phone Tamar Macias NP Primary Care Provider [phone] Allergies No known active allergies Medications naproxen (NAPROSYN) 500 mg tablet Take 1 tablet (500 mg total) by mouth 2 (two) times a day as needed for pain (pain) 60 tablet 07/09/2023 Active Active Problems Problem Noted Date Diagnosed Date Inguinal pain of both sides 07/09/2023 Assessment & Plan (07/09/2023 2:31 PM LEAD GENERATION MARKETING MANAGER): Persistent Inguinal strain, initial encounter 07/09/2023 Assessment & Plan (07/09/2023 2:30 PM LEAD GENERATION MARKETING MANAGER): Pain started after doing a lot of straining with heavy lifting, pushing and pulling at work on 07/05/23 Reported it the same day Was sent to [facility] for evaluation on 06/1323, dx with epididymitis and released to return to work light duty (see copy in chart) Inguinal hernia of right jamal e without obstruction or gangrene 07/09/2023 Assessment & Plan (07/09/2023 2:32 PM LEAD GENERATION MARKETING MANAGER): Palpable R inguinal hernia that is reducible [...] on file Legal Sex Male 9:13 AM LEAD GENERATION MARKETING MANAGER Gender Identity Not on file Sexual Orientation Not on file Obstetrics History Last Filed Vital Signs Vital Sign Reading Time Taken Comments Blood Pressure 118/80 07/09/2023 10:15 AM LEAD GENERATION MARKETING MANAGER Pulse 79 07/09/2023 10:15 AM LEAD GENERATION MARKETING MANAGER Temperature 36.4 ??C (97.6 ??F) 07/09/2023 10:[address] Respiratory Rate 18 06/19/2019 10:53 PM LEAD GENERATION MARKETING MANAGER Oxygen Saturation 99% 07/09/2023 10:15 AM LEAD GENERATION MARKETING MANAGER Inhaled Oxygen Concentration - - Weight 97 kg (213 lb 14.4 oz) 07/09/2023 10:15 A M LEAD GENERATION MARKETING MANAGER Height 172.7 cm (5' 8 ) 07/09/2023 10:15 AM LEAD GENERATION MARKETING MANAGER Body Mass Index 32.52 07/09/2023 10:15 AM LEAD GENERATION MARKETING MANAGER Plan of Treatment Health Maintenance Due Date Last Done Comments Hepatitis C Screening 1996 DTaP/Tdap/Td Vaccine (4 - Tdap) 2007 03/08/1997, 01/08/1997, 1996 Varicella Vaccines (1 of 2 - 13+ 2-dose series) 2009 Regular Well Visit/Exam 18-64 2014 Influenza Vaccine (#1) 2024 05/05/2010 Depression Screening 07/09/2024 07/09/2023 HPV Vaccines Aged Out No longer eligi ble based on patient's age to complete this topic Pneumococcal vaccine <65 Aged Out No longer eligible based on patient's age to complete this topic Care Teams Hedge Fund Principal Relationship Specialty Start Date End Date Tamar Macias NP PCP - General Thermal Cutter Hand 07/08/23
--- OUTSIDE RECORDS SUMMARY | 2024-07-18 02:56 | XMS_ITS | Encounter Summary ---
Author Organization [facility] Healthcare Address [address] [place] [address] Care Team Providers Care Price Lister Name Role Phone Tamar Macias NP Primary Care Provider [phone] Reason for Referral * Consultation (Routine) - Pending Review Specialty Diagnoses / Procedures Referred By Contac t Referred To Contact General Surgery Diagnoses Non-recurrent unilateral inguinal hernia [place] [address] [place] [address] Phone: tel: fax: Delaney Cortez MD Phone: tel: fax: Referral ID Status Reason Start Date Expiration Date Visits Requested Visits Authorized [id number] Pending Review Specialty Services Required 09/13/2023 10/12/2024 1 1 Question Answer Please select the performing region: [facility] (All Locations) [167] To provider: DELANEY CORTEZ [[id number]] # of visits: 1 Comments Right inguinal hernia SILK GRADER Encounter Details Date Type Department Care Team (Late st Contact Info) Description 09/13/2023 Orders Only [facility] Operating Room [address] [place] [phone] [place] [address] [place] [address] Non-recurrent unilateral inguinal hernia without obstruction [...] on file Legal Sex Male 9:13 AM RAW SILK GRADER Gender Identity Not on file Sexual Orientation [...] Primary documented in this encounter Care Teams Price Lister Relationship Specialty Start Date End Date Tamar Macias NP PCP - General Commercial Loan Underwriter 07/08/23 documented as of this encounter
--- OUTSIDE RECORDS SUMMARY | 2024-07-18 02:56 | XMS_ITS | Encounter Summary ---
Author Organization [facility] Healthcare Address [address] [place] [address] Care Team Providers Care Engine Repairer Service Name Role Phone Tamar Macias NP Primary Care Provider [phone] Reason for Referral * Consultation (Routine) - Authorized Specialty Diagnoses / Procedures Referred By Contac t Referred To Contact Urology Diagnoses Inguinal hernia of right side without obstruction or gangrene Inguinal pain of both sides Inguinal strain, initial encounter Tamar Macias NP Phone: tel: fax: U[facility] of [address] [address] Phone: tel: fax: Referral ID Status Reason Start Date Expiration Date Visits Requested Visits Authorized [id number] Authorized Specialty Services Required 3 08/07/2024 1 1 Question Answer Please select the performing region: External Order [171] To loc/pos [facility] [[id number]] # of visits: 1 STATION ATTENDANT Reason for Visit * Reason Comments New Patient possible hernia Encounter Details Date Type Department Care Team (Late st Contact Info) Description 07/09/2023 10:30 AM GAS STATION ATTENDANT Office Visit [facility] Primary Care at [address] [address] Tamar Macias NP [address] [place] [address] [address] [place] [address] Inguinal strain, initial encounter (Primary Dx); Inguinal [...] on file Legal Sex Male 9:13 AM GAS STATION ATTENDANT Gender Identity Not on file Sexual Orientation Not on file documented as of this encounter Last Filed Vital Signs Vital Sign Reading Time Taken Comments Blood Pressure 118/80 07/09/2023 10:15 AM GAS STATION ATTENDANT Pulse 79 07/09/2023 10:15 AM GAS STATION ATTENDANT Temperature 36.4 ??C (97.6 ??F) 07/09/2023 10:[address] Respiratory Rate - - Oxygen Saturation 99% 07/09/2023 10:15 AM GAS STATION ATTENDANT Inhaled Oxygen Concentration - - Weight 97 kg (213 lb 14.4 oz) 07/09/2023 10:15 A M GAS STATION ATTENDANT Height 172.7 cm (5' 8 ) 07/09/2023 10:15 AM GAS STATION ATTENDANT Body Mass Index 32.52 07/09/2023 10:15 AM GAS STATION ATTENDANT documented in this encounter Patient Instructions * Patient Instructions* Tamar Macias NP - 07/09/2023 10:30 AM GAS STATION ATTENDANT Discussed diagnoses with patient. He can return [...] NSAIDs, hernia belt Referral to urology My spanish medical interpreter and I are thankful you have trusted [...] were not feeling your best! -Tamar Macias DOCUMENT SCANNER-BC STATION ATTENDANT STATION ATTENDANT STATION ATTENDANT documented in this encounter Ordered Prescriptions Prescription [...] it the same day Was sent to [facility] for evaluation on 06/1323, dx [...] at work on 07/05/23. Was sent to [facility] on 07/07/23. Had reported injury [...] with Tylenol 2 pills on Wednesday from [facility], no relief Has discomfort in his [...] Bernard Conley MD at 07/12/2023 12:29 PM GAS STATION ATTENDANT STATION ATTENDANT STATION ATTENDANT documented in this encounter Miscellaneous Notes * Assessment & Plan Note - Tamar Macias NP - 07/09/2023 2:32 PM GAS STATION ATTENDANT Associated Problem(s): Inguinal hernia of right side without obstruction or gangrene Palpable R inguinal hernia that is reducible with moderate amount of pain reported STATION ATTENDANT * Assessment & Plan Note - Tamar Macias NP - 07/09/2023 2:31 PM GAS STATION ATTENDANT Associated Problem(s): Inguinal pain of both sides Persistent STATION ATTENDANT * Assessment & Plan Note - Tamar Macias NP - 07/09/2023 2:30 PM GAS STATION ATTENDANT Associated Problem(s): Inguinal strain, initial encounter Pain started after doing a lot of straining with heavy lifting, pushing and pulling at work on 07/05/23 Reported it the same day Was sent to [facility] for evaluation on 06/1323, dx with epididymitis and released to return to work light duty (see copy in chart) STATION ATTENDANT documented in this encounter Plan of Treatment [...] gangrene documented in this encounter Care Teams Engine Repairer Service Relationship Specialty Start Date End Date Tamar Macias NP PCP - General Cashiers Bussers Food Runners 07/08/23 documented as of this encounter
--- OUTSIDE RECORDS SUMMARY | 2024-07-18 02:56 | XMS_ITS | Encounter Summary ---
Author Organization [facility] Care Team Providers Care Sql Server Dba Developer Name Role Phone Rosina Esteban MD Primary Care Provider [phone] Encounter Details Date Type Department Care Team (Latest Contact Info) Description 06/19/2019 Travel Social History Tobacco Use Types Packs/Day Years Used Date Smoking Tobacco: Never Smokeless Tobacco: Never Comments:Vapes Sex and Gender Information Value Date Recorded Sex Assigned at Not on file Legal Sex Male 9:13 AM RN RELIEF CHARGE Gender Identity Not on file Sexual Orientation Not on file documented as of this encounter Plan of Treatment Not on file documented as of this encounter Visit Diagnoses Not on filedocumented in this encounter Care Teams Sql Server Dba Developer Relationship Specialty Start Date End Date Rosina Esteban MD PCP - General 04/01/11 07/07/23 documented as of this encounter
--- OUTSIDE RECORDS SUMMARY | 2024-07-18 02:56 | XMS_ITS | Clinical Summary ---
Author Organization [facility] Address [address] [place] [address] Care Team Providers Care Community Music Therapist Name Role Phone Tamar Macias NP Primary Care Provider [phone] Allergies No known active allergies Medications naproxen (NAPROSYN) 500 mg tablet Take 1 tablet (500 mg total) by mouth 2 (two) times a day as needed for pain (pain) 60 tablet 07/09/2023 Active Active Problems Problem Noted Date Diagnosed Date Inguinal pain of both sides 07/09/2023 Assessment & Plan (07/09/2023 2:31 PM CLINICAL PSYCHOLOGIST LICENSED): Persistent Inguinal strain, initial encounter 07/09/2023 Assessment & Plan (07/09/2023 2:30 PM CLINICAL PSYCHOLOGIST LICENSED): Pain started after doing a lot of straining with heavy lifting, pushing and pulling at work on 07/05/23 Reported it the same day Was sent to [facility] for evaluation on 06/1323, dx with epididymitis and released to return to work light duty (see copy in chart) Inguinal hernia of right jamal e without obstruction or gangrene 07/09/2023 Assessment & Plan (07/09/2023 2:32 PM CLINICAL PSYCHOLOGIST LICENSED): Palpable R inguinal hernia that is reducible [...] on file Legal Sex Male 9:13 AM CLINICAL PSYCHOLOGIST LICENSED Gender Identity Not on file Sexual Orientation Not on file Obstetrics History Last Filed Vital Signs Vital Sign Reading Time Taken Comments Blood Pressure 118/80 07/09/2023 10:15 AM CLINICAL PSYCHOLOGIST LICENSED Pulse 79 07/09/2023 10:15 AM CLINICAL PSYCHOLOGIST LICENSED Temperature 36.4 ??C (97.6 ??F) 07/09/2023 10:[address] Respiratory Rate 18 06/19/2019 10:53 PM CLINICAL PSYCHOLOGIST LICENSED Oxygen Saturation 99% 07/09/2023 10:15 AM CLINICAL PSYCHOLOGIST LICENSED Inhaled Oxygen Concentration - - Weight 97 kg (213 lb 14.4 oz) 07/09/2023 10:15 A M CLINICAL PSYCHOLOGIST LICENSED Height 172.7 cm (5' 8 ) 07/09/2023 10:15 AM CLINICAL PSYCHOLOGIST LICENSED Body Mass Index 32.52 07/09/2023 10:15 AM CLINICAL PSYCHOLOGIST LICENSED Plan of Treatment Health Maintenance Due Date [...] age to complete this topic Care Teams Community Music Therapist Relationship Specialty Start Date End Date Tamar Macias NP PCP - General Information Coder 07/08/23
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
--- OUTSIDE RECORDS SUMMARY | 2024-07-18 02:56 | XMS_ITS | Encounter Summary ---
Author Organization [facility] Healthcare Address [address] [place] [address] Care Team Providers Care Ladle Handler Name Role Phone Rosina Esteban MD Primary Care Provider [phone] Reason for Visit * Reason Comments Insect Bite Encounter Details Date Type Department Care Team (Late st Contact Info) Description 06/19/2019 10:44 PM INTERNET RESEARCHER - 06/19/2019 11:13 PM INTERNET RESEARCHER Emergency [facility] Emergency Department [address] [place] [id number] Cellulitis of right lower extremity (Primary Dx) Discharge Disposition: Discharge to home or self care Social History Tobacco Use Types Packs/Day Years Used Date Smoking Tobacco: Never Smokeless Tobacco: Never Comments:Vapes Sex and Gender Information Value Date Recorded Sex Assigned at Not on file Legal Sex Male 9:13 AM INTERNET RESEARCHER Gender Identity Not on file Sexual Orientation Not on file documented as of this encounter Last Filed Vital Signs Vital Sign Reading Time Taken Comments Blood Pressure 140/79 06/19/2019 10:53 PM INTERNET RESEARCHER Pulse 81 06/19/2019 10:53 PM INTERNET RESEARCHER Temperature 36.3 ??C (97.3 ??F) 06/19/2019 10:[address] Respiratory Rate 18 06/19/2019 10:53 PM INTERNET RESEARCHER Oxygen Saturation 99% 06/19/2019 10:53 PM INTERNET RESEARCHER Inhaled Oxygen Concentration - - Weight 90.7 kg (200 lb) 06/19/2019 10:53 PM INTERNET RESEARCHER Height 167.6 cm (5' 6 ) 06/19/2019 10:53 PM INTERNET RESEARCHER Body Mass Index 32.28 06/19/2019 10:53 PM INTERNET RESEARCHER documented in this encounter Discharge Diagnoses Diagnosis Cellulitis of right lower limb - CELLULITIS OF RIGHT LOWER LIMB documented in this encounter Discharge Instructions * Attachments The following attachments cannot be sent through Care Everywhere. * Cellulitis (AfterCare(R) Instructions(ER/ED)) (Macanese) documented in this encounter Medications at Time [...] this encounter ED Notes * Mariza Edwards, BODY TECHNICIAN/PAINTER - 06/19/2019 11:02 PM CST HPI Chief [...] nursing note reviewed. Exam conducted with a swing frame grinder operator present. Constitutional: General: He is not in [...] Yefri Cook MD at 06/20/2019 12:18 AM INTERNET RESEARCHER RNET RESEARCHER RNET RESEARCHER * Nedra Parra RN - 06/19/2019 10:52 PM CST Pt presents with complaints of a possible insect bite to his right lower leg. 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 Pt states that the area is very tender. It appears that thecenter of the site has been scratched open. RNET RESEARCHER documented in this encounter Plan of Treatment Not on file documented as of this encounter Visit Diagnoses Diagnosis Cellulitis of right lower extremity- Primary documented in this encounter Care Teams Ladle Handler Relationship Specialty Start Date End Date Rosina Esteban MD PCP - General 04/01/11 07/07/23 documented as of this encounter
--- OUTSIDE RECORDS SUMMARY | 2024-07-18 02:56 | XMS_ITS | Encounter Summary ---
Author Organization [facility] Healthcare Address [address] [place] [address] Care Team Providers Care Mica Paster Name Role Phone Rosina Esteban MD Primary Care Provider [phone] Encounter Details Date Type Department Care Team (Late st Contact Info) Description 02/13/2017 12:37 PM CDT - 02/13/2017 3:36 PM CDT Emergency [facility] Emergency Department [address] [place] [address] Thais Dela Cruz MD [address] [place] [address] Discharge Disposition: Discharge to home or self care Social History Tobacco Use Types Packs/Day Years Used Date Smoking Tobacco: Never Assessed Sex and Gender Information Value Date Recorded Sex Assigned at Not on file Legal Sex Male 9: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 CUTTER Gender Identity Not on file Sexual Orientation [...] 80 30 - 200 Units/L [facility] ([place]) Blood specimen (specimen) 02/13/2017 2:24 PM CDT 02/13/2017 2:30 PM CDT us Amy Parra EQUITY TRADER LAB BLOOD ORDERABLES Final Re sult [facility] ([place]) 1 [facility] Department [place] [address] * Urinalysis reflex to microscopic and culture [...] Ketones, ur Negative Negative [facility] ([place]) Bilirubin, ur Negative Negative [facility] ([place]) [...] GENERAL OR DERABLES Final Result [facility]ICOLETTE ELIZABETH ([place]) 1 [facility] Department [place] [address] * eGFR (02/13/2017 1:15 PM CDT) eGFR >60 mL/min/1.7 3 m2 [facility] EL[facility]AB[facility] ([place]) Comment: Interpretive Data Reference Interval Normal ?>/= 90 mL/min/1.73m2 Mildly decreased* ? 60 - 89 mL/min/1.73m2 Mildly to moderately decreased ?45 - 59 mL/min/1.73m2 Moderately to severely decreased ??30 - 44 mL/min/1.73m2 Severely decreased ?15 - 29 mL/min/1.73m2 Kidney Failure ?< 15 ??mL/min/1.73m2 *Relative to young adult level If -Martiniquais multiply value by 1.16. Estimated glomerular filtration [...] 02/13/2017 1:17 PM CDT us Amy Parra EQUITY TRADER LAB BLOOD ORDERABLES Final Re sult [facility] ([place]) 1 [facility] Department [place] [address] * Comprehensive metabolic panel (02/13/2017 1:15 PM [...] 02/13/2017 1:17 PM CDT us Amy Parra EQUITY TRADER LAB BLOOD ORDERABLES Final Re sult Performing Organization Address City/[facility]/ZIP Co de Phone Number [facility] ([place]) 1 [facility] [place] [employer] [place] [address] * Lipase (02/13/2017 1:15 PM CDT) Lipase 19 10 - 70 Units/L [facility] ([place]) Blood specimen (specimen) 02/13/2017 1:15 PM CDT 02/13/2017 1:17 PM CDT us Amy Parra EQUITY TRADER LAB BLOOD ORDERABLES Final Re sult Performing Organization Address [facility]/ZIP Co de Phone Number [facility] ([place]) 1 [facility] [place] [address] * Amylase (02/13/2017 1:15 PM CDT) Amylase 46 30 - 100 Units/L [facility] ([place]) Blood specimen (specimen) 02/13/2017 1:15 PM CDT 02/13/2017 1:17 PM CDT us Amy Parra EQUITY TRADER LAB BLOOD ORDERABLES Final Re sult Performing Organization Address City/[facility]/ZIP Co de Phone Number [facility] ([place]) 1 [facility] [place] [address] * CBC with auto differential (02/13/2017 1:15 [...] 02/13/2017 1:17 PM CDT us Amy Parra EQUITY TRADER LAB BLOOD ORDERABLES Final [facility] 1 [facility] Department of Laboratories [place], [place] [id number] * Differential, auto (02/13/2017 1:15 PM CDT) [...] 02/13/2017 1:17 PM CDT us Amy Parra EQUITY TRADER LAB BLOOD ORDERABLES Final Re sult [facility] ([place]) 1 [facility] Department [place] [address] * DISCHARGE LABORATORY CUMULATIVE REPORT (02/13/2017 12:00 AM CDT) Narrative 02/13/2017 12:00 AM CDT Ordered by an unspecified provider. Historical Provider LAB BLOOD ORDERABLES Alice l Result * ELECTROCARDIOGRAPHY (ECG) (02/13/2017) Provider Scanning ECG ORDERABLES Final Result documented in this encounter Visit Diagnoses Not on filedocumented in this encounter Care Teams Mica Paster Relationship Specialty Start Date End Date Rosina Esteban MD PCP - General 04/01/11 07/07/23 documented as of this encounter
--- OUTSIDE RECORDS SUMMARY | 2024-07-18 02:56 | XMS_ITS | Encounter Summary ---
Author Organization [facility] Healthcare Address [address] [place] [address] Care Team Providers Care Athlete Marketing Agent Name Role Phone Tamar Macias NP Primary Care Provider [phone] Reason for Visit * Reason Onset Date Comments Medical Records Request 08/09/2023 Encounter Details Date Type Department Care Team ([facility] Contact Info) Description 08/09/2023 Telephone [facility] Medical Group Primary Care at [address] [place] [address] Tamar Macias NP [address] [place] [address] Medical Records Request Social History Tobacco Use [...] on file Legal Sex Male 9:13 AM PATIENT TRANSPORT OFFICER Gender Identity Not on file Sexual Orientation Not on file documented as of this encounter Miscellaneous Notes * Telephone Encounter - Amy Ruvalcaba - 08/09/2023 1:43 PM CST Call Back Caller???s Concern: 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 Understood. Does message need to be routed? No ENT TRANSPORT OFFICER * Telephone Encounter - Renae Campo MA - 08/09/2023 11:58 AM PATIENT TRANSPORT OFFICER Left envolope at front end assistant for the patient, with requested documents ENT TRANSPORT OFFICER * Telephone Encounter - Tania Bauer - 08/09/2023 11:32 AM CST Medical Records Request Request Type: Records Request Practice Will Complete What records are being requested:Office visit notes from 07/09/23 Who will the records be sent to (if being sent to another doctor, list the doctor's name and specialty)? Patient picking up Date Needed: JOEL Delivery Method: developer prover upholstering at practice Additional Comments: patient needs this JOEL as work dr did not find hernia and they are making himwork. ESTELA Macias did find something the patient states. Does message need to be routed? Yes-Action Needed ENT TRANSPORT OFFICER documented in this encounter Plan of Treatment Not on file documented as of this encounter Visit Diagnoses Not on filedocumented in this encounter Care Teams Athlete Marketing Agent Relationship Specialty Start Date End Date Tamar Macias NP PCP - General Planer Feeder 07/08/23 documented as of this encounter
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
--- OUTSIDE RECORDS SUMMARY | 2024-07-18 02:56 | XMS_ITS | Referral Summary ---
Author Organization [facility] Address [address] [place] [address] Care Team Providers Care Joint Special Operations Name Role Phone Tamar Macias NP Primary Care Provider [phone] Allergies No known active allergies Medications naproxen (NAPROSYN) 500 mg tablet Take 1 tablet (500 mg total) by mouth 2 (two) times a day as needed for pain (pain) 60 tablet 07/09/2023 Active Active Problems Problem Noted Date Diagnosed Date Inguinal pain of both sides 07/09/2023 Assessment & Plan (07/09/2023 2:31 PM MEDICATION TECH): Persistent Inguinal strain, initial encounter 07/09/2023 Assessment & Plan (07/09/2023 2:30 PM MEDICATION TECH): Pain started after doing a lot of straining with heavy lifting, pushing and pulling at work on 07/05/23 Reported it the same day Was sent to [facility] for evaluation on 06/1323, dx with epididymitis and released to return to work light duty (see copy in chart) Inguinal hernia of right jamal e without obstruction or gangrene 07/09/2023 Assessment & Plan (07/09/2023 2:32 PM MEDICATION TECH): Palpable R inguinal hernia that is reducible [...] on file Legal Sex Male 9:13 AM MEDICATION TECH Gender Identity Not on file Sexual Orientation Not on file Last Filed Vital Signs Vital Sign Reading Time Taken Comments Blood Pressure 118/80 07/09/2023 10:15 AM MEDICATION TECH Pulse 79 07/09/2023 10:15 AM MEDICATION TECH Temperature 36.4 ??C (97.6 ??F) 07/09/2023 10:[address] Respiratory Rate 18 06/19/2019 10:53 PM MEDICATION TECH Oxygen Saturation 99% 07/09/2023 10:15 AM MEDICATION TECH Inhaled Oxygen Concentration - - Weight 97 kg (213 lb 14.4 oz) 07/09/2023 10:15 A M MEDICATION TECH Height 172.7 cm (5' 8 ) 07/09/2023 10:15 AM MEDICATION TECH Body Mass Index 32.52 07/09/2023 10:15 AM MEDICATION TECH Plan of Treatment Not on file Care Teams Joint Special Operations Relationship Specialty Start Date End Date Tamar Macias NP PCP - General Gypsum Calciner 07/08/23
--- OUTSIDE RECORDS SUMMARY | 2024-07-18 02:56 | XMS_ITS | Encounter Summary ---
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
--- OUTSIDE RECORDS SUMMARY | 2024-07-18 02:56 | XMS_ITS | Encounter Summary ---
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
--- OUTSIDE RECORDS SUMMARY | 2024-07-18 02:56 | XMS_ITS | Encounter Summary ---
Author Organization [facility] Healthcare Address [address] [place] [address] Care Team Providers Care District Plant Engineer Name Role Phone Tamar Macias NP Primary Care Provider [phone] Reason for Visit * Reason Onset Date Comments Recommendation Request 08/24/2023 Encounter Details Date Type Department Care Team ([facility] Contact Info) Description 08/24/2023 Telephone [facility] Medical Group Primary Care at [address] [place] [address] Tamar Macias NP [address] [place] [address] [address] [place] [address] Recommendation Request Social History Tobacco Use Types [...] on file 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 WIRER * Telephone Encounter - Tania Bauer - [...] message need to be routed? Yes-Action Needed WIRER documented in this encounter Plan of Treatment Not on file documented as of this encounter Visit Diagnoses Not on filedocumented in this encounter Care Teams District Plant Engineer Relationship Specialty Start Date End Date Tamar Macias NP PCP - General Barrel Assembly Inspector 07/08/23 documented as of this encounter
--- OUTSIDE RECORDS SUMMARY | 2024-07-18 02:56 | XMS_ITS | Encounter Summary ---
Author Organization [facility] Healthcare Address [address] [place] [address] Care Team Providers Care Lsat Instructor Name Role Phone Rosina Lucero MD Primary Care Provider [phone] Encounter Details Date Type Department Care Team (Late st Contact Info) Description 04/13/2013 5:41 PM CDT - 04/13/2013 11:59 PM CDT Hospital Encounter [facility] Rosina Lucero MD [address] [place] [address] Pain in joint, lower leg Social History Tobacco Use Types Packs/Day Years Used Date Smoking Tobacco: Never Assessed Sex and Gender Information Value Date Recorded Sex Assigned at Not on file Legal Sex Male 9:13 AM CHIEF CARDIOPULMONARY TECHNOLOGIST Gender Identity Not on file Sexual Orientation [...] CDT XR Knee Min 4 Views R ??[id number] ??Acc#: ??[id number] DATE OF EXAM: ??Apr 13 2013 CLINICAL [...] 11/17/2016 XR Knee Min 4 Views R [id number] Acc#: [id number] DATE OF EXAM: Apr 13 2013 CLINICAL [...] leg documented in this encounter Care Teams Lsat Instructor Relationship Specialty Start Date End Date Rosina Lucero MD PCP - General 04/01/11 07/07/23 documented as of this encounter
== END 2024-07-10 11:05 | disposition home or self-care (01) ==
PROVIDERS: Emergency Provider Nurse Practitioner Family
DX: R11.2 Nausea with vomiting, unspecified (principal); R19.7 Diarrhea, unspecified
CPT/HCPCS: 99202; G0463